=== PATIENT | female | born 2000 | race Hispanic/Latino ===

== ENCOUNTER 2022-08-27 05:46 | Day surgery (SDC) | payer BC, OTHER ==
[2022-08-24 18:00] VITALS: BP 137/76
[~2022-08-27] VITALS: Ht 157.5 cm; Wt 103.9 kg
[~2022-08-27 05:46] MED LIST: ETHI1TAB26 PO
[2022-08-27 06:20] VITALS: BP 108/64
[2022-08-27] MEDS ORDERED: PROPOFOL 10 MG/ML 20ML VIAL IV ONE (08:08)
[2022-08-27 08:25] VITALS: BP 111/67
[2022-08-27 08:35] VITALS: BP 128/75
[2022-08-27 08:45] VITALS: BP 122/76
== END 2022-08-27 09:00 | disposition home or self-care (01) ==
LOC: DAH 05:46
PROVIDERS: ATTEND Surgery
DX: K21.9 Gastro-esophageal reflux disease without esophagitis (principal); Z20.822 Contact with and (suspected) exposure to COVID-19; E66.01 Morbid (severe) obesity due to excess calories; Z79.899 Other long term (current) drug therapy; Z98.890 Other specified postprocedural states; Z90.89 Acquired absence of other organs; Z82.49 Family history of ischemic heart disease and other diseases of the circulatory system; Z83.3 Family history of diabetes mellitus; Z68.41 Body mass index [BMI] 40.0-44.9, adult
CPT/HCPCS: 87426; 81025; 82948; 71045; 43235; J2704; A4620; A4215 ×2; A4223; A4657; A7002; A4222; A4221; A4663; J7030; A4606